=== PATIENT | female | born 2005 | race Two or more races ===

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

== ENCOUNTER 2024-04-03 20:51 | Emergency (ER) | payer MEDICAID | END 2024-04-03 22:15 | disposition left against medical advice (07) | LOC: ER 20:51 | DX: R10.2 Pelvic and perineal pain (principal); Z53.21 Procedure and treatment not carried out due to patient leaving prior to being seen by health care provider ==

== ENCOUNTER 2024-04-04 11:16 | Emergency (ER) | payer MEDICAID ==
[~2024-04-04] VITALS: Ht 149.9 cm; Wt 45.8 kg
[2024-04-04 11:45] LABS: Urine Bacteria None Seen /hpf (None Seen)
[2024-04-04 11:59] LABS: Urine Blood Negative /uL (Negative); Urine Clarity Clear (Clear); Urine Color Light-Yellow (Yellow); Urine Protein, UAD Negative (Negative); Urine Specific Gravity 1.016 (1.001-1.035); Urine Urobilinogen Normal (Negative); Urine WBC 1 /hpf (0 - 5); Urine pH 5.5 (5.0-9.0)
[2024-04-04 12:23] LABS: Basophils # (auto) 0 10 ^3/uL (0-0.2); Basophils % (auto) 0.2 % (0.0-2.0); Eosinophils # (auto) 0.1 10 ^3/uL (0-0.8); Eosinophils % (auto) 0.7 % (0.0-7.0); Hematocrit 41.8 % (36.0-46.0); Lymphocytes # (auto) 1.8 10 ^3/uL (0.4-5.4); Lymphocytes % (auto) 21.2 % (10.0-50.0); Mean Corpuscular Hemoglobin 28.2 pg (28.0-32.0); Mean Corpuscular Hgb Conc. 33.4 g/dL (32.0-36.0); Mean Corpuscular Volume 84.3 fL (80.0-100.0); Monocytes # (auto) 0.6 10 ^3/uL (0-1.3); Neutrophils # (auto) 6.1 10 ^3/uL (1.6-8.6); Neutrophils % (auto) 70.9 % (37.0-80.0); Nucleated Red Blood Cells % 0.1 %; Red Blood Cells 4.96 10^6/uL (4.0-5.20); White Blood Cell 8.5 10^3/uL (4.4-10.8)
[2024-04-04] MEDS: ACETAMINOPHEN 325 MG TAB PO ONE (12:30)
[2024-04-04 12:41] LABS: Alanine Aminotransferase 18 U/L (7-40); Albumin 4.3 g/dL (3.2-4.8); Alkaline Phosphatase 130 U/L (46-116); Anion Gap 5 (5-15); Aspartate Aminotransferase < 8 U/L (13-40); Bilirubin, Total 0.4 mg/dL (0.2-1.0); Blood Urea Nitrogen 10 mg/dL (9-23); Calcium 9.5 mg/dL (8.7-10.4); Carbon Dioxide 26 mmol/L (20-30); Chloride 108 mmol/L (98-107); Glucose 81 mg/dL (74-106); Potassium 3.8 mmol/L (3.5-5.1); Sodium 139 mmol/L (136-145); Total Protein 6.9 g/dL (5.7-8.2)
[2024-04-04 15:10] VITALS: BP 115/83; PULSE 92; RESP 18; TEMP 98.3; O2SAT 100
== END 2024-04-04 15:13 | disposition home or self-care (01) ==
LOC: ER 11:16
DX: O46.91 Antepartum hemorrhage, unspecified, first trimester (principal); R10.2 Pelvic and perineal pain; R10.84 Generalized abdominal pain; E86.0 Dehydration; Z3A.01 Less than 8 weeks gestation of pregnancy
CPT/HCPCS: 36415; 76801; 76817; 80053; 81001; 84702; 85025; 86900; 86901

== ENCOUNTER 2024-04-06 15:35 | Emergency (ER) | payer MEDICAID ==
[~2024-04-06] VITALS: Ht 149.9 cm; Wt 45.2 kg
[2024-04-06 16:02] VITALS: BP 117/78; PULSE 112; RESP 16; O2SAT 100
== END 2024-04-06 17:37 | disposition home or self-care (01) ==
LOC: ER 15:35
DX: O26.891 Other specified pregnancy related conditions, first trimester (principal); R10.2 Pelvic and perineal pain; R10.9 Unspecified abdominal pain; Z3A.01 Less than 8 weeks gestation of pregnancy
CPT/HCPCS: 36415; 84702

== ENCOUNTER 2024-08-26 09:07 | Emergency (ER) | payer MEDICAID ==
[~2024-08-26] VITALS: Ht 149.9 cm; Wt 50.5 kg
--- NOTE | 2024-08-26 09:51 | ED.PDOC ---
HPI (NEURO) HPI Comments 19 Y F, presents top the ED with CC of dizziness. Patient states that she has been experiencing dizziness with intermittent palpations, hot flashes, and nausea since this morning. Patient relays that she has experienced episodes like this in the past since the start of her which have since intensified. Patient states that she just returned from [place], and was supposed to address her symptoms there however, she was unable to hear back from her DR due to her returning [place] to the [place] Patient denies any vomiting, diarrhea, chills, cough, nasal congestion, or headache. Chief Complaint: Dizziness Time Seen by MD: 09:20 Primary Care Provider: NATALY Reviewed Notes: Nurses Notes, Medications, Allergies Information Source: Patient Mode of Arrival: Ambulatory Severity: Mild Headache Severity: None Timing: Hours Duration: Since onset Symptoms: None History of: None Modifying factors: Nothing Associated Signs and Symptoms: None Past Medical History PAST MEDICAL HISTORY: Denies Surgical History: Denies all surgeries FOREST PATHOLOGY PROFESSOR History: No Pertinent FOREST PATHOLOGY PROFESSOR History Family History Family History: Unknown Family History (Other): Sickle cell trait Social History Smoker: Non-Smoker Alcohol: Denies ETOH Use Drugs: Denies Drug Use Lives In: Home Constitutional: denies: chills, diaphoresis, fatigue, fever, malaise, sweats, weakness, others EENTM: denies: blurred vision, double vision, ear bleeding, ear discharge, ear drainage, ear pain, ear ringing, eye pain, eye redness, hearing loss, mouth pain, mouth swelling, nasal discharge, nose bleeding, nose congestion, nose pain, photophobia, tearing, throat pain, throat swelling, voice changes, others Respiratory: denies: cough, hemoptysis, orthopnea, SOB at rest, shortness of breath, SOB with excertion, stridor, wheezing, others Cardiovascular: reports: irregular heart beat, palpitations; denies: chest pain, dizzy spells, diaphoresis, Dyspnea on exertion, edema, left arm pain, lightheadedness, PND, syncope, others Gastrointestinal: reports: nausea; denies: abdomen distended, abdominal pain, blood streaked bowels, constipated, diarrhea, dysphagia, difficulty swallowing, hematemesis, melena, poor appetite, poor fluid intake, rectal bleeding, rectal pain, vomiting, others Genitourinary: denies: abnormal vagina bleeding, burning, dyspareunia, dysuria, flank pain, frequency, hematuria, incontinence, pain, , vagina discharge, urgency, others Neurological: denies: dizziness, fainting, headache, left sided numbness, left sided weakness, numbness, paresthesia, pre-existing deficit, right sided numbness, right sided weakness, seizure, speech problems, tingling, tremors, weakness, others Musculoskeletal: denies: back pain, gout, joint pain, joint swelling, muscle pain, muscle stiffness, neck pain, others Integumetry: denies: bruises, change in color, change in hair/nails, dryness, laceration, lesions, lumps, rash, wounds, others Allergic/Immunocompromised: denies: Difficulty Healing, Frequent Infections, Hives, Itching, others Hematologic/Lymphatic: denies: anemia, blood clots, easy bleeding, easy bruising, swollen glands, others All Other Systems: Reviewed and Negative Physical Exam General Appearance: No Apparent Distress, Normal HEENT: Normal ENT Inspection, Pharynx Normal, TMs Normal Neck: Full Range of Motion, Non-Tender, Normal, Normal Inspection Respiratory: Chest Non-Tender, Lungs Clear, No Accessory Muscle Use, No Respiratory Distress, Normal Breath Sounds Cardiovascular: No Edema, No JVD, No Murmur, No Gallop, Normal Peripheral Pulses, Regular Rate/Rhythm Breast Exam: Deferred Gastrointestinal: No Organomegaly, Non Tender, No Pulsatile Mass, Normal Bowel Sounds, Soft Genitalia: Deferred Pelvic: Deferred Rectal: Deferred Extremities: No calf tenderness, Normal capillary refill, Normal inspection, Normal range of motion, Non-tender, No pedal edema Musculoskeletal : Apperance: Normal Neurologic: Alert, hand profiler II-XII nml as Tested, No Motor Deficits, Normal Affect, Normal Mood, No Sensory Deficits Cerebellar Function: Normal Reflexes: Normal Skin: Dry, Normal Color, Warm Lymphatic: No Adenopathy Was a procedure done? Was a procedure done?: No Differential Diagnosis (SZ) General Weakness: Dehydration, Dysrhythmia Headache: Cluster, Migraine X-Ray, Labs, Meds, VS Vital Signs Date Time Temp Pulse Resp B/P (MAP) Pulse Ox O2 Delivery O2 Flow Rate FiO2 08/26/24 11:00 98.1 101 18 105/67 (80) 100 98.1 08/26/24 09:22 114 08/26/24 09:07 98.6 116 18 126/79 (95) 98 Lab Test 08/26/24 11:20 08/26/24 10:28 08/26/24 09:38 Range/Units Urine Color Light-yellow Yellow Urine Clarity Clear Clear Urine pH 5.5 5.0-9.0 Urine Specific [place] 1.010 1.001-1.035 Urine Protein Negative Negative Urine Ketones Negative Negative Urine Blood Negative Negative /uL Urine Nitrite Negative Negative Urine Bilirubin Negative Negative Urine Urobilinogen Normal Negative mg/dL Urine Leukocyte Esterase Negative Negative /uL Urine RBC 1 0 - 4 /hpf Urine WBC 3 0 - 5 /hpf Urine Squamous Epithelial Cells Few <5 /hpf Urine Bacteria Few H None Seen /hpf Urine Mucus Few None Seen Urine Glucose Normal Normal mg/dL Troponin I High Sensitivity < 3 L < 3 L </=34 ng/L White Blood Count 5.3 4.4-10.8 10^3/uL Red Blood Count 4.59 4.0-5.20 10^6/uL Hemoglobin 13.2 12.2-16.2 g/dL Hematocrit 38.8 36.0-46.0 % Mean Corpuscular Volume 84.5 80.0-100.0 fL Mean Corpuscular Hemoglobin 28.9 28.0-32.0 pg Mean Corpuscular Hemoglobin Concent 34.2 32.0-36.0 g/dL Red Cell Distribution Width 13.6 11.8-14.3 % Platelet Count 135 L 140-450 10^3/uL Mean Platelet Volume 9.3 6.9-10.8 fL Neutrophils (%) (Auto) 59.1 37.0-80.0 % Lymphocytes (%) (Auto) 32.0 10.0-50.0 % Monocytes (%) (Auto) 7.4 0.0-12.0 % Eosinophils (%) (Auto) 1.1 0.0-7.0 % Basophils (%) (Auto) 0.4 0.0-2.0 % Neutrophils # (Auto) 3.1 1.6-8.6 10 ^3/uL Lymphocytes # (Auto) 1.7 0.4-5.4 10 ^3/uL Monocytes # (Auto) 0.4 0-1.3 10 ^3/uL Eosinophils # (Auto) 0.1 0-0.8 10 ^3/uL Basophils # (Auto) 0 0-0.2 10 ^3/uL Nucleated Red Blood Cells 0.0 % Sodium Level 139 136-145 mmol/L Potassium Level 3.5 3.5-5.1 mmol/L Chloride Level 106 98-107 mmol/L Carbon Dioxide Level 24 20-31 mmol/L Anion Gap 9 5-15 Blood Urea Nitrogen 6 L 9-23 mg/dL Creatinine 0.54 L 0.550-1.02 mg/dL Glomerular Filtration Rate Calc 135 >90 mL/min BUN/Creatinine Ratio 11.1 10.0-20.0 Serum Glucose 76 74-106 mg/dL Calcium Level 9.4 8.7-10.4 mg/dL Current Medications Medications (Trade) Dose Ordered Sig/David Route Start Time Stop Time Status Last Admin Sodium Chloride 1,000 ml @ 1,000 mls/hr Q1H ONCE IV 08/26/24 09:30 08/26/24 10:29 DC 08/26/24 10:20 Ondansetron HCl (Zofran) 4 mg ONCE ONCE IV 08/26/24 09:30 08/26/24 09:31 DC 08/26/24 10:23 Time of 1ST Reevaluation: 09:50 Reevaluation 1ST: Unchanged Patient Education/Counseling: Diagnosis, Treatment Family Education/Counseling: No Family Present Departure 1 Departure Time of Disposition: 14:34 (Patient's workup is benign. She is feeling significantly better after receiving fluids. Discharge patient home with outpatient follow up) Impression: Primary Impression: Palpitations Additional Impressions: Dizziness Qualified Codes: Z34.90 - Encounter for supervision of normal , unspecified, unspecified trimester Disposition: 01 HOME / SELF CARE / HOMELESS Condition: Stable Referrals: NIMISHA INGRAM DO Additional Instructions: Your workup today was benign. You can take Tylenol as needed for pain. You should follow up with your regular doctor within 1 week. You should stay well rested and well hydrated. If your symptoms worsen or you have any other concerns please return to the emergency room. Discharged With: Self Critical Care Note Critical Care Time?: No Stability Stability form required: No Heart Score Heart Score: Heart Score Response (Comments) Value History N/A 0 EKG N/A 0 Age N/A 0 Risk Factors N/A 0 Troponin N/A 0 Total 0 I personally scribed for DONNA SOLIS MD ([email or web address]) on 08/26/24 at 09:51. Electronically submitted by Elise Mayen ([email or web address]). I personally scribed for DONNA SOLIS MD ([email or web address]) on 08/26/24 at 09:58. Electronically submitted by Elise Mayen ([email or web address]). DONNA SOLIS MD Aug 26, 2024 09:51
[2024-08-26 10:02] LABS: Basophils # (auto) 0 10 ^3/uL (0-0.2); Basophils % (auto) 0.4 % (0.0-2.0); Eosinophils # (auto) 0.1 10 ^3/uL (0-0.8); Eosinophils % (auto) 1.1 % (0.0-7.0); Hematocrit 38.8 % (36.0-46.0); Hemoglobin 13.2 g/dL (12.2-16.2); Lymphocytes # (auto) 1.7 10 ^3/uL (0.4-5.4); Mean Corpuscular Hemoglobin 28.9 pg (28.0-32.0); Mean Corpuscular Hgb Conc. 34.2 g/dL (32.0-36.0); Mean Corpuscular Volume 84.5 fL (80.0-100.0); Monocytes # (auto) 0.4 10 ^3/uL (0-1.3); Monocytes % (auto) 7.4 % (0.0-12.0); Neutrophils # (auto) 3.1 10 ^3/uL (1.6-8.6); Neutrophils % (auto) 59.1 % (37.0-80.0); Platelet Count (auto) 135 10^3/uL (140-450); Red Blood Cells 4.59 10^6/uL (4.0-5.20); Red Cell Distribution Width 13.6 % (11.8-14.3); White Blood Cell 5.3 10^3/uL (4.4-10.8)
[2024-08-26 10:14] LABS: Chloride 106 mmol/L (98-107); Potassium 3.5 mmol/L (3.5-5.1)
[2024-08-26 10:15] LABS: Anion Gap 9 (5-15); Carbon Dioxide 24 mmol/L (20-31); Sodium 139 mmol/L (136-145)
[2024-08-26 10:16] LABS: Calcium 9.4 mg/dL (8.7-10.4)
[2024-08-26] MEDS: SODIUM CHLORIDE 0.9% 1,000 ML IV ONE (10:20)
[2024-08-26 10:21] LABS: BUN/Creatinine Ratio 11.1 (10.0-20.0); Glucose 76 mg/dL (74-106)
[2024-08-26 10:22] LABS: Blood Urea Nitrogen 6 mg/dL (9-23)
[2024-08-26] MEDS: ONDANSETRON HCL 4 MG/2 ML VIAL IV ONE (10:23)
[2024-08-26 11:58] LABS: Urine Bacteria FEW /hpf (None Seen); Urine Blood Negative /uL (Negative); Urine Clarity Clear (Clear); Urine Color Light-Yellow (Yellow); Urine Mucus FEW (None Seen); Urine Protein, UAD Negative (Negative); Urine Urobilinogen Normal (Negative); Urine WBC 3 /hpf (0 - 5); Urine pH 5.5 (5.0-9.0)
[2024-08-26 15:17] VITALS: BP 109/69; PULSE 96; RESP 18; TEMP 98; O2SAT 99
--- NOTE | 2024-08-27 10:20 | ECG ---
[facility] Test Date: 2024-08-26 Test Time: 09:22:31 Pat Name: KERRY HEATH Department: ER Room: Gender: F Environmental Lawyer: LUIS : 2005 Requested By: DONNA SOLIS Order Number: [id number] Reading MD: Measurements Intervals [place] Rate: 114 P: 35 MN: 142 QRS: 93 QRSD: 87 T: 42 QT: 312 QTc: 430 Interpretive Statements Sinus tachycardia Borderline right axis deviation Borderline T wave abnormalities Please click the below link to view image of tracing.
== END 2024-08-26 15:19 | disposition home or self-care (01) ==
LOC: ER 09:07
DX: O26.892 Other specified pregnancy related conditions, second trimester (principal); R00.2 Palpitations; R00.0 Tachycardia, unspecified; R42 Dizziness and giddiness; Z36.9 Encounter for antenatal screening, unspecified; Z3A.24 24 weeks gestation of pregnancy
CPT/HCPCS: 36415; 80048; 81001; 84484; 85025; 93005; 96361; 96374; 99284; J2405; J7030

== ENCOUNTER 2024-08-29 14:05 | Inpatient (IN) | payer MEDICAID ==
[~2024-08-29] VITALS: Ht 149.9 cm; Wt 57.0 kg
--- NOTE | 2024-08-29 14:35 | ED.PDOC ---
History of Present Illness HPI Comments HPI: Poor Historian. 19-year-old female presents to emergency department for evaluation of nausea and vomiting nonbilious nonbloody that started today. Patient has checked her pulse and was in the 130s and decided to come here for evaluation. She says she feels sometimes episodes of dizziness today. Patient is 25 weeks gestation. Denies any abdominal pain or abdominal cramps or urinary symptoms. VITALS: Temp: 98.0 F RR: 17 02 sat : 99 % on room air HR: 132 BP: 113/65 PMH: denies PSH: denies Social history: denies tobacco use, denies ETOH use, denies drug use Medications: pre-anamika vitamins Allergies: denies REVIEW OF SYSTEMS: CONSTITUTIONAL: Denies acute: fever, diaphoresis, chills, generalized weakness. HEAD: Denies acute: headache, photophobia Eyes: Denies acute: Double vision, vision loss, eye pain, eye discharge. EARS: Denies acute: tinnitus, hearing loss, ear discharge, ear pain, THROAT: Denies acute: sore throat, swelling, difficulty swallowing , pain with swallowing, change in voice. NECK: Denies acute: neck pain, neck swelling, stiff neck. HEART: Denies acute : chest pain, palpitations, LUNGS: Denies acute: SOB, wheezing, cough, hemoptysis ABDOMEN: Denies acute: abdominal pain, diarrhea, melena , hematemesis, hematochezia SKIN: Denies acute: rash, redness, lesions, itchiness. EXTREMITIES: Denies acute: calf pain, numbness, tingling, weakness, denies pain in extremity. Denies acute: Low back pain. Neuro: Denies acute: focal neurological deficit, motor or sensory focal neurological deficit, tremors, seizure like activity, confusion, dizziness, change in mental status, loss of bowel or bladder function, cauda equina like symptoms. : Denies acute: dysuria, hematuria, flank pain, increase in urinary frequency. PSYCH: Denies acute: hallucination, suicidal ideation, homicidal ideation. FEMALE: Denies acute: abnormal vaginal bleeding, foul odor, unusual discharge. PHYSICAL EXAM: General: no acute distress, awake and alert. Head: normocephalic, atraumatic. Neck: supple, trachea is midline, no swelling. Throat: Normal phonation. No exudates, no swelling, no obstruction, no erythema, no deviation, no drooling Eyes:, no erythema, no purulent discharge, no proptosis, no icterus. Heart: regular tachycardia, no significant murmur appreciated. Lungs: no apparent respiratory distress, Able to speak in full sentences. No wheezing, no rhonchi, no crackles. No stridors Clear to auscultation bilaterally. Abdomen: non tender to palpation, non distended, soft, no guarding, no rebound, + bowel sounds. Gravid abdomen Neuro: Awake, Alert, oriented to name, self, situation, follows commands GCS=15. Speech is normal. Skin: no petechia, no purpura, no cyanosis, non-pale, not jaundice. Lower extremities: --no - Pitting edema no deformity, no focal swelling, no calf TTP. Makes eye contact. moves all four extremities. Face: no apparent facial droop. Ambulating in the ED independently. No nuchal rigidity, Kernig's sign, Brudzinski's sign, no meningeal signs. Chief Complaint: Nausea/Vomiting Time Seen by MD: 14:27 Primary Care Provider: NATALY Reviewed Notes: Nurses Notes, Medications, Allergies Allergies: Coded Allergies: NO KNOWN ALLERGIES (Unverified , 06/23/23) Information Source: Patient Past Medical History PAST MEDICAL HISTORY: Denies Surgical History: Denies all surgeries INFORMATION SECURITY OFFICER History: No Pertinent INFORMATION SECURITY OFFICER History Family History Family History: Unknown Family History (Other): Sickle cell trait Social History Smoker: Non-Smoker Alcohol: Denies ETOH Use Drugs: Denies Drug Use Lives In: Home Was a procedure done? Was a procedure done?: No X-Ray, Labs, Meds, VS Vital Signs Date Time Temp Pulse Resp B/P (MAP) Pulse Ox O2 Delivery O2 Flow Rate FiO2 08/29/24 20:31 98.6 119 98.6 08/29/24 19:45 98.6 127 16 112/71 (85) 99 98.6 08/29/24 19:45 127 16 99 Room Air* 0 21 08/29/24 14:28 98.0 132 17 113/65 (81) 99 08/29/24 14:12 130 Lab Test 08/29/24 17:27 08/29/24 15:00 08/29/24 14:36 Range/Units Troponin I High Sensitivity < 3 L < 3 L </=34 ng/L White Blood Count 5.9 4.4-10.8 10^3/uL Red Blood Count 4.50 4.0-5.20 10^6/uL Hemoglobin 12.8 12.2-16.2 g/dL Hematocrit 38.0 36.0-46.0 % Mean Corpuscular Volume 84.4 80.0-100.0 fL Mean Corpuscular Hemoglobin 28.4 28.0-32.0 pg Mean Corpuscular Hemoglobin Concent 33.7 32.0-36.0 g/dL Red Cell Distribution Width 13.6 11.8-14.3 % Platelet Count 148 140-450 10^3/uL Mean Platelet Volume 9.3 6.9-10.8 fL Neutrophils (%) (Auto) 59.2 37.0-80.0 % Lymphocytes (%) (Auto) 31.9 10.0-50.0 % Monocytes (%) (Auto) 8.4 0.0-12.0 % Eosinophils (%) (Auto) 0.3 0.0-7.0 % Basophils (%) (Auto) 0.2 0.0-2.0 % Neutrophils # (Auto) 3.5 1.6-8.6 10 ^3/uL Lymphocytes # (Auto) 1.9 0.4-5.4 10 ^3/uL Monocytes # (Auto) 0.5 0-1.3 10 ^3/uL Eosinophils # (Auto) 0 0-0.8 10 ^3/uL Basophils # (Auto) 0 0-0.2 10 ^3/uL Nucleated Red Blood Cells 0.1 % Sodium Level 139 136-145 mmol/L Potassium Level 3.8 3.5-5.1 mmol/L Chloride Level 105 98-107 mmol/L Carbon Dioxide Level 25 20-31 mmol/L Anion Gap 9 5-15 Blood Urea Nitrogen 6 L 9-23 mg/dL Creatinine 0.50 L 0.550-1.02 mg/dL Glomerular Filtration Rate Calc 138 >90 mL/min BUN/Creatinine Ratio 12.0 10.0-20.0 Serum Glucose 88 74-106 mg/dL Lactic Acid Level 1.0 0.4-2.0 mmol/L Calcium Level 9.0 8.7-10.4 mg/dL Magnesium Level 1.9 1.6-2.6 mg/dL Total Bilirubin 0.4 0.2-1.0 mg/dL Aspartate Amino Transferase (AST) 53 H 13-40 U/L Alanine Aminotransferase (ALT) 75 H 7-40 U/L Alkaline Phosphatase 112 46-116 U/L Total Protein 6.2 5.7-8.2 g/dL Albumin 3.9 3.2-4.8 g/dL Lipase 31 12-53 U/L Thyroid Stimulating Hormone (TSH) 2.31 0.55-4.78 uIU/mL Urine Color Light-yellow Yellow Urine Clarity Clear Clear Urine pH 6.0 5.0-9.0 Urine Specific [place] 1.014 1.001-1.035 Urine Protein Negative Negative Urine Ketones Negative Negative Urine Blood Negative Negative /uL Urine Nitrite Negative Negative Urine Bilirubin Negative Negative Urine Urobilinogen Normal Negative mg/dL Urine Leukocyte Esterase 1+ Negative /uL Urine RBC 1 0 - 4 /hpf Urine WBC 1 0 - 5 /hpf Urine Squamous Epithelial Cells Few <5 /hpf Urine Bacteria Few H None Seen /hpf Urine Glucose Normal Normal mg/dL Urine Opiates Screen Neg NEGATIVE Urine Fentanyl Screen Neg NEGATIVE Urine Barbiturates Screen Neg NEGATIVE Urine Phencyclidine Screen Neg NEGATIVE Urine Amphetamines Screen Neg NEGATIVE Urine Benzodiazepines Screen Neg NEGATIVE Urine Cocaine Screen Neg NEGATIVE Urine Cannabinoids Screen Neg NEGATIVE Influenza Type A Antigen Negative Negative Influenza Type B Antigen Negative Negative SARS-CoV-2 Antigen (Rapid) Negative NEGATIVE Group A Streptococcus Rapid Negative Current Medications Medications (Trade) Dose Ordered Sig/David Route Start Time Stop Time Status Last Admin Sodium Chloride 500 ml @ 500 mls/hr Q1H ONCE IV 08/29/24 18:15 08/29/24 19:14 DC 08/29/24 19:54 Ondansetron HCl (Zofran) 8 mg ONCE ONCE IV 08/29/24 20:30 08/29/24 20:31 DC 08/29/24 20:53 Ceftriaxone Sodium 50 ml @ 100 mls/hr ONCE ONCE IV 08/29/24 20:30 08/29/24 20:59 DC 08/29/24 20:53 Sodium Chloride 500 ml @ 500 mls/hr Q1H ONCE IV 08/29/24 21:00 08/29/24 21:59 DC 08/29/24 21:07 Time of 1ST Reevaluation: 20:51 (The case was discussed with the [facility] team (HPI, physical exam, labs and diagnostic tests that were available at the time of disposition, ED course, treatment plan) on the phone. They recommend labetalol IV for heart rate control. They agree with fluid and Zofran. Dr. Dixon. Later I spoke with Dr. Alaniz who also agrees with labetalol.) Reevaluation 1ST: Improved Patient Education/Counseling: Diagnosis, Treatment Family Education/Counseling: No Family Present Comments MDM: Patient presented with the above HPI.----- nausea and vomiting----- workup was initiated. patient was found with the above mentioned diagnosis. the following medications were ordered: labetalol, Rocephin, IV fluids, Zofran the following tests were ordered: troponin x3, TSH, UA, rapid strep, Influenza A and B, COVID test, lipase, Magnesium, lactic acid, drug screen, CBC, CMP, EKG x 1 Patient ED course and VS have been stabilized. Patient has been reassessed in the ED and remained in a stable condition. Patient has been observed in the ED adequate length of time to insure improvement/stability. Escalation of care considered: Consideration of escalation to observation or admission. patient was ADMITTED to the medicine team for further evaluation and treatment of their presentation. All the reports of any imaging studies that were ordered by myself were reviewed by myself. Departure 1 Departure Time of Disposition: 20:29 Impression: Primary Impression: Sinus tachycardia Disposition: ADMITTED INPATIENT Admit to: [facility] Condition: Guarded Discharged With: Self Critical Care Note Critical Care Time?: No Heart Score Heart Score: Heart Score Response (Comments) Value History Slightly Suspicious 0 Age <45 0 Risk Factors No known risk factors 0 Troponin Normal limit 0 Total 0 I personally scribed for DARLENE JOYNER DO ([email or web address]) on 08/29/24 at 17:15. Electronically submitted by Ministerio Graf ([email or web address]). I personally scribed for DARLENE JOYNER DO ([email or web address]) on 08/29/24 at 21:14. Electronically submitted by Ministerio Graf ([email or web address]). DARLENE JOYNER DO Aug 29, 2024 14:35
[2024-08-29 15:35] LABS: Basophils # (auto) 0 10 ^3/uL (0-0.2); Basophils % (auto) 0.2 % (0.0-2.0); Eosinophils # (auto) 0 10 ^3/uL (0-0.8); Eosinophils % (auto) 0.3 % (0.0-7.0); Hemoglobin 12.8 g/dL (12.2-16.2); Lymphocytes # (auto) 1.9 10 ^3/uL (0.4-5.4); Lymphocytes % (auto) 31.9 % (10.0-50.0); Mean Corpuscular Hemoglobin 28.4 pg (28.0-32.0); Mean Corpuscular Hgb Conc. 33.7 g/dL (32.0-36.0); Mean Corpuscular Volume 84.4 fL (80.0-100.0); Monocytes # (auto) 0.5 10 ^3/uL (0-1.3); Monocytes % (auto) 8.4 % (0.0-12.0); Neutrophils # (auto) 3.5 10 ^3/uL (1.6-8.6); Neutrophils % (auto) 59.2 % (37.0-80.0); Nucleated Red Blood Cells % 0.1 %; Platelet Count (auto) 148 10^3/uL (140-450); Red Cell Distribution Width 13.6 % (11.8-14.3); White Blood Cell 5.9 10^3/uL (4.4-10.8)
[2024-08-29 15:48] LABS: Urine Bacteria FEW /hpf (None Seen); Urine Blood Negative /uL (Negative); Urine Clarity Clear (Clear); Urine Color Light-Yellow (Yellow); Urine Protein, UAD Negative (Negative); Urine Specific Gravity 1.014 (1.001-1.035); Urine Urobilinogen Normal (Negative); Urine WBC 1 /hpf (0 - 5)
[2024-08-29 15:56] LABS: Albumin 3.9 g/dL (3.2-4.8); Alkaline Phosphatase 112 U/L (46-116); Anion Gap 9 (5-15); Bilirubin, Total 0.4 mg/dL (0.2-1.0); Carbon Dioxide 25 mmol/L (20-31); Chloride 105 mmol/L (98-107); Glucose 88 mg/dL (74-106); Lipase 31 U/L (12-53); Magnesium 1.9 mg/dL (1.6-2.6); Potassium 3.8 mmol/L (3.5-5.1); Sodium 139 mmol/L (136-145); Total Protein 6.2 g/dL (5.7-8.2)
[2024-08-29 15:57] LABS: Amphetamine Screen, Urine Neg (NEGATIVE); Barbiturate Scree,Urine Neg (NEGATIVE); Benzodiazephine Screen, Urine Neg (NEGATIVE); Cannabinoid Screen, Urine Neg (NEGATIVE); Cocaine Screen, Urine Neg (NEGATIVE); Opiate Scree,Urine Neg (NEGATIVE); Phencyclidine Screen, Urine Neg (NEGATIVE)
[2024-08-29 16:08] LABS: Alanine Aminotransferase 75 U/L (7-40); Aspartate Aminotransferase 53 U/L (13-40); Blood Urea Nitrogen 6 mg/dL (9-23)
[2024-08-29 16:26] LABS: COVID19 ANTIGEN SOFIA FIA NEGATIVE (NEGATIVE); Rapid Influenza A Negative (Negative); Rapid Influenza B Negative (Negative); Rapid Strep A Screen-Throat Negative
[2024-08-29 19:45] VITALS: PULSE 127; RESP 16; O2SAT 99
[2024-08-29] MEDS: SODIUM CHLORIDE 0.9% 500 ML IV ONE ×2 (19:54→21:07)
[2024-08-29] MEDS: cefTRIAXone 1GM/50ML D5W 50 ML IV ONE (20:53)
[2024-08-29] MEDS: ONDANSETRON HCL 4 MG/2 ML VIAL IV ONE (20:53)
[2024-08-29] MEDS: LABETALOL HCL 20 MG/4 ML VL IV ONE (21:08)
[2024-08-29] MEDS ORDERED: MORPHINE SULFATE INJ 2 MG/ml SYRG IV PRN (23:00)
[2024-08-29] MEDS ORDERED: ONDANSETRON HCL 4 MG/2 ML VIAL IV PRN (23:00)
[2024-08-29] MEDS ORDERED: NITROGLYCERIN 0.4 MG SL TAB SL PRN (23:00)
--- NOTE | 2024-08-29 23:04 | DVHHPRES ---
History of Present Illness Resident Creating Document: KARYN HUTCHINSON RESIDENT History of Present Illness This is a 19-year-old and to at 24 year week of presented to the ED with a chief complaint of intractable nausea and vomiting since morning prior to this admission. The patient states that she has few episodes of vomiting since morning and also complaining of headache and palpitation for the same duration. The patient denies any history of preeclampsia/eclampsia during previous or any elevated blood pressure on this . 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 The patient denies abdominal pain, any vaginal discharge, decreased heart sounds, chest pain, dizziness, diaphoresis, dysuria, change in bowel and bladder habit, sick contact, fever, chills or any recent traveling. Past Medical History None Past Surgical History None Family History Sickle cell trait runs in the family Past Social History Lives with family Nonsmoker, nonalcoholic and never tried any drugs Review of Systems Constitutional: No: Fever, Chills, Sweats, Weakness, Malaise, Other Eyes: No: Pain, Vision change, Conjunctivae inflammation, Eyelid inflammation, Other, Redness ENT: No: Ear pain, Ear discharge, Nose pain, Nose discharge, Nose congestion, Mouth pain, Mouth swelling, Throat pain, Throat swelling, Other Respiratory: No: Cough, Dry, Shortness of breath, SOB with excertion, Wheezing, Hemoptysis, Pleuritic Pain, Sputum, Wheezing, Other Cardiovascular: Palpitations Gastrointestinal: Nausea, Vomiting Genitourinary: No Dysuria, No Frequency, No Incontinence, No Hematuria, No Retention, No Other Musculoskeletal: No: other, neck pain, shoulder pain, arm pain, back pain, hand pain, leg pain, foot pain Skin: No: Rash, Lesions, Jaundice, Bruising, Other Neurological: No: Weakness, Numbness, Incoordination, Change in speech, Confusion, Seizures, Other Allergies: Coded Allergies: NO KNOWN ALLERGIES (Unverified , 06/23/23) Medications Current Medications Medications Dose Ordered Sig/David Route Start Time Stop Time Status Last Admin Dose Admin Sodium Chloride 10 ml Q8HR IV 08/30/24 06:00 UNV Sodium Chloride 1,000 ml @ 100 mls/hr Q10H IV 08/29/24 23:00 UNV Ondansetron HCl 4 mg Q4HP PRN IV 08/29/24 23:00 UNV Acetaminophen 650 mg Q6HP PRN PO 08/29/24 23:00 UNV Nitroglycerin 0.4 mg Q5MINP PRN SL 08/29/24 23:00 UNV Morphine Sulfate 2 mg Q30M PRN IV 08/29/24 23:00 UNV Exam Vital Signs Vital Signs Date Time Temp Pulse Resp B/P (MAP) Pulse Ox O2 Delivery O2 Flow Rate FiO2 08/29/24 20:31 98.6 119 98.6 08/29/24 19:45 16 112/71 (85) 99 08/29/24 19:45 Room Air* 0 21 Exam Physical examination: General Appearance: Alert, Oriented X3, Cooperative, No acute distress HEENT: Atraumatic, PERRLA, EOMI, Mucous membrane moist/pink Respiratory: Clear to auscultation, Normal air movement Cardiovascular: Regular rate, Normal S1, Normal S2, No murmurs, no chest wall tenderness Abdominal: 25th week distended abdomen, Normal bowel sounds, Soft, No tenderness, No hepatospenomegaly, No masses Extremities: No clubbing, No cyanosis, No edema, Normal pulses, No tenderness/swelling Skin: No rashes, No breakdown, No significant lesion Neuro: Normal gait, Normal speech, Strength at 5/5 X4 ext, Normal tone, Sensation intact, Cranial nerves 3-12 NL, Reflexes 2+ Psych/Mental Status: Mental status NL, Mood NL Labs/Xrays Labs Test 08/29/24 17:27 08/29/24 15:00 08/29/24 14:36 Range/Units Troponin I High Sensitivity < 3 L </=34 ng/L White Blood Count 5.9 4.4-10.8 10^3/uL Red Blood Count 4.50 4.0-5.20 10^6/uL Hemoglobin 12.8 12.2-16.2 g/dL Hematocrit 38.0 36.0-46.0 % Mean Corpuscular Volume 84.4 80.0-100.0 fL Mean Corpuscular Hemoglobin 28.4 28.0-32.0 pg Mean Corpuscular Hemoglobin Concent 33.7 32.0-36.0 g/dL Red Cell Distribution Width 13.6 11.8-14.3 % Platelet Count 148 140-450 10^3/uL Mean Platelet Volume 9.3 6.9-10.8 fL Neutrophils (%) (Auto) 59.2 37.0-80.0 % Lymphocytes (%) (Auto) 31.9 10.0-50.0 % Monocytes (%) (Auto) 8.4 0.0-12.0 % Eosinophils (%) (Auto) 0.3 0.0-7.0 % Basophils (%) (Auto) 0.2 0.0-2.0 % Neutrophils # (Auto) 3.5 1.6-8.6 10 ^3/uL Lymphocytes # (Auto) 1.9 0.4-5.4 10 ^3/uL Monocytes # (Auto) 0.5 0-1.3 10 ^3/uL Eosinophils # (Auto) 0 0-0.8 10 ^3/uL Basophils # (Auto) 0 0-0.2 10 ^3/uL Nucleated Red Blood Cells 0.1 % Sodium Level 139 136-145 mmol/L Potassium Level 3.8 3.5-5.1 mmol/L Chloride Level 105 98-107 mmol/L Carbon Dioxide Level 25 20-31 mmol/L Anion Gap 9 5-15 Blood Urea Nitrogen 6 L 9-23 mg/dL Creatinine 0.50 L 0.550-1.02 mg/dL Glomerular Filtration Rate Calc 138 >90 mL/min BUN/Creatinine Ratio 12.0 10.0-20.0 Serum Glucose 88 74-106 mg/dL Lactic Acid Level 1.0 0.4-2.0 mmol/L Calcium Level 9.0 8.7-10.4 mg/dL Magnesium Level 1.9 1.6-2.6 mg/dL Total Bilirubin 0.4 0.2-1.0 mg/dL Aspartate Amino Transferase (AST) 53 H 13-40 U/L Alanine Aminotransferase (ALT) 75 H 7-40 U/L Alkaline Phosphatase 112 46-116 U/L Total Protein 6.2 5.7-8.2 g/dL Albumin 3.9 3.2-4.8 g/dL Lipase 31 12-53 U/L Thyroid Stimulating Hormone (TSH) 2.31 0.55-4.78 uIU/mL Urine Color Light-yellow Yellow Urine Clarity Clear Clear Urine pH 6.0 5.0-9.0 Urine Specific [place] 1.014 1.001-1.035 Urine Protein Negative Negative Urine Ketones Negative Negative Urine Blood Negative Negative /uL Urine Nitrite Negative Negative Urine Bilirubin Negative Negative Urine Urobilinogen Normal Negative mg/dL Urine Leukocyte Esterase 1+ Negative /uL Urine RBC 1 0 - 4 /hpf Urine WBC 1 0 - 5 /hpf Urine Squamous Epithelial Cells Few <5 /hpf Urine Bacteria Few H None Seen /hpf Urine Glucose Normal Normal mg/dL Urine Opiates Screen Neg NEGATIVE Urine Fentanyl Screen Neg NEGATIVE Urine Barbiturates Screen Neg NEGATIVE Urine Phencyclidine Screen Neg NEGATIVE Urine Amphetamines Screen Neg NEGATIVE Urine Benzodiazepines Screen Neg NEGATIVE Urine Cocaine Screen Neg NEGATIVE Urine Cannabinoids Screen Neg NEGATIVE Influenza Type A Antigen Negative Negative Influenza Type B Antigen Negative Negative SARS-CoV-2 Antigen (Rapid) Negative NEGATIVE Group A Streptococcus Rapid Negative Assessment/Plan Assessment/Plan Assessment and plan: # Intractable nausea and vomiting in - IV normal saline at 100 mL/hour - IV ondansetron 4 mg q.4 p.r.n. - Consulted Obgyn # Sinus tachycardia likely due to dehydration - IV normal saline at 100 mL/hour # Asymptomatic bacteriuria in - U/A revealed 1+ leukocyte esterase and few bacteria - IV ceftriaxone 1 g daily # Transaminitis, rule out HELLP syndrome - Ordered urine protein - Monitor BP and CMP Goal of care discussed with the patient for more than 17 minutes full code Plan of treatment discussed with Dr. Jaramillo Plan discussed with: Patient, Other My Orders Orders - KARYN HUTCHINSON RESIDENT Procedure Category Date Status Time Admit ADMIT 08/29/24 Transmitted 22:55 Code Status CODE 08/29/24 Transmitted 22:55 Sodium Chloride Lock PHA 08/30/24 Logged (Saline Lock Ns) 06:00 Sodium Chloride 0.9% PHA 08/29/24 Logged 23:00 Ondansetron Hcl PHA 08/29/24 Logged (Zofran) 23:00 Complete Blood Count LAB 08/30/24 Verified 04:00 Comprehensive LAB 08/30/24 Verified Metabolic Panel 04:00 Acetaminophen Tablet PHA 08/29/24 Logged (Tylenol Tablet) 23:00 Clear Liq Diet DIET 08/30/24 Transmitted Breakfast Nitroglycerin PHA 08/29/24 Logged Sublingual (Ntrostat 23:00 Morphine Sulfate PHA 08/29/24 Logged Injection 23:00 Oxygen By Nasal RT 08/29/24 Transmitted Cannula 22:55 Stat Ekg For Chest MAURO 08/29/24 In Process Pain 22:55 Notify Of Changes MAURO 08/29/24 In Process From Base 22:55 Billing Administrator For MAURO 08/29/24 In Process 24 Hours 22:55 Emergency Dysrhythmia MAURO 08/29/24 In Process Protocol 22:55 Rhythm Strips Once MAURO 08/29/24 In Process Every Shift 22:55 Urine Protein LAB 08/29/24 Transmitted 23:01 Ceftriaxone Ivpb PHA 08/30/24 Transmitted Rocephin 10:00 * Client Server Programmer Consultation CONS 08/29/24 Transmitted 23:01 Date of Service: Aug 29, 2024 Billing Provider: KENYON JARAMILLO MD Common Visit Codes: [id number] INP/OBS CARE (HIGH) KARYN HUTCHINSON RESIDENT Aug 29, 2024 23:04 KENYON JARAMILLO MD Aug 30, 2024 10:47
[2024-08-30] VITALS (9 sets, daily range): BP systolic 100–111; BP diastolic 59–67; PULSE 99–134; RESP 16–20; TEMP 97.3–100.3; O2SAT 97–100
[2024-08-30] MEDS: ACETAMINOPHEN 325 MG TAB PO PRN (00:15)
[2024-08-30] MEDS: SODIUM CHLORIDE 0.9% 1,000 ML IV SCH (00:38)
[2024-08-30] MEDS: SODIUM CHLOR 0.9% PF (SALINE LOCK) 10ML VIAL/SYR IV SCH (05:38)
[2024-08-30 06:11] LABS: Hemoglobin 12.1 g/dL (12.2-16.2); Mean Corpuscular Hemoglobin 28.6 pg (28.0-32.0); Mean Corpuscular Hgb Conc. 33.6 g/dL (32.0-36.0); Platelet Count (auto) 123 10^3/uL (140-450); Red Blood Cells 4.24 10^6/uL (4.0-5.20); Red Cell Distribution Width 13.8 % (11.8-14.3); White Blood Cell 4.5 10^3/uL (4.4-10.8)
[2024-08-30 06:23] LABS: Basophils % (manual) 0 (0.0-2.0); Blast Cells 0; Eosinophils % (manual) 0 (0-7); Metamyelocytes % 0; Myelocytes % 0; Promyelocytes % 0; Reactive Lymphocytes 0
[2024-08-30 06:41] LABS: Albumin 3.7 g/dL (3.2-4.8); Alkaline Phosphatase 104 U/L (46-116); Anion Gap 6 (5-15); Aspartate Aminotransferase 38 U/L (13-40); Carbon Dioxide 24 mmol/L (20-31); Glucose 80 mg/dL (74-106); Potassium 3.6 mmol/L (3.5-5.1); Sodium 139 mmol/L (136-145)
[2024-08-30 06:42] LABS: Bilirubin, Total 0.4 mg/dL (0.2-1.0); Total Protein 6.1 g/dL (5.7-8.2)
[2024-08-30 06:50] LABS: Alanine Aminotransferase 62 U/L (7-40); BUN/Creatinine Ratio 11.4 (10.0-20.0); Blood Urea Nitrogen < 5 mg/dL (9-23); Calcium 8.6 mg/dL (8.7-10.4); Chloride 109 mmol/L (98-107)
[2024-08-30 08:46] LABS: Band Neutrophils % (manual) 3; Lymphocytes % (manual) 37 (10.0-50.0); Monocytes % (manual) 5 (0-12); Platelet Estimate Decreased
[2024-08-30] MEDS: MAGNESIUM SULFATE 1GM/100ML 100 ML IV ONE (10:06)
--- NOTE | 2024-08-30 12:36 | DVHHP2 ---
OB CC & HPI Date Date of Admission: Aug 30, 2024 Patient Identification: : 2 Para: 1 EGA: 25 Chief Complaints: Reason for admission: other (Nausea emises heart palpatations, SAWANT anxiety) Admission Nurse Assessment Rev: Yes History of Present Complaints All symptom's started Sunday seen in ER and DC d home ... She returned to ER 08/29 with worsening symptom's Past Medical History Cardiac: No pertinent Hx Pulmonary: No pertinent Hx Central Nervous System: No pertinent Hx GI: No pertinent Hx Hemotology/Oncology: No pertinent Hx Hepatobiliary: No pertinent Hx Psychiatric: No pertinent Hx Musculoskeletal: No pertinent Hx Rheumotologic: No pertinent Hx Infectious Disease: No peritnent Hx ENT: No pertinent Hx Renal/: No pertinent Hx Endocrine: No pertinent Hx Dermatology: No pertinent Hx Past Surgical History: No pertinent Hx OB History OB History Care: Good Care Ultrasounds: Normal mid trimester US Allergies: Coded Allergies: NO KNOWN ALLERGIES (Unverified , 06/23/23) Current Medications Current Medications Medications (Trade) Dose Ordered Sig/David Route PRN Reason Start Time Stop Time Status Last Admin Sodium Chloride (Saline Lock Ns) 10 ml Q8HR IV 08/30/24 06:00 08/30/24 05:38 Sodium Chloride 1,000 ml @ 100 mls/hr Q10H IV 08/29/24 23:00 08/30/24 02:05 Ondansetron HCl (Zofran) 4 mg Q4HP PRN IV NAUSEA / VOMITING 08/29/24 23:00 Acetaminophen (Tylenol Tablet) 650 mg Q6HP PRN PO PAIN SCALE 1-3 OR TEMP>100.4 08/29/24 23:00 08/30/24 06:35 Nitroglycerin (Ntrostat Sublingual) 0.4 mg Q5MINP PRN SL FOR CHEST PAIN 08/29/24 23:00 Morphine Sulfate 2 mg Q30M PRN IV FOR CHEST PAIN 08/29/24 23:00 Ceftriaxone Sodium 50 ml @ 100 mls/hr DAILY@2100 IV 08/30/24 21:00 Review of Systems Constitutional: No symptom reported Ears, Nose, & Throat: No symptom reported Eyes: No symptom reported Pulmonary/Respiratory: No symptom reported Cardiovascular: No symptom reported Gastrointestinal: No symptom reported Genitourinary: No symptom reported Musculoskeletal: No symptom reported Skin: No symptom reported Psychiatric: No symptom reported Endocrine: No symptom reported Hemotologic/Lymphatic: No symptom reported OB Admission Exam Physical Exam Vitals: Vital Signs Date Time Temp Pulse Resp B/P (MAP) Pulse Ox O2 Delivery O2 Flow Rate FiO2 08/30/24 09:10 129 Room Air* 0 21 08/30/24 09:03 98.3 18 108/59 (75) 99 98.3 HEENT: TMs Normal, [place] Normal, Nasal Mucosa Normal, Eyes non-injected, Oropharynx Normal, PERRLA, Moist Membranes, EOMI Heart: Rhythm Normal (tachy) Abdomen: Gravid Extremities: Normal Reflexes: Normal Cervical Dilatation: other (deferred) OB Plan Plan Admitting Diagnosis: with intractable nausea and vomiting; US on arrival ; sinus tach Plan: Other (continue hydration ; close obervation, Ob US , Gall bladder US.... ) Other Plan: OB ultrasound , Gall Bladder US CAMRYN CHEEK DO Aug 30, 2024 12:36
--- NOTE | 2024-08-30 13:54 | DVH ---
EXAM: US GALLBLADDER CLINICAL HISTORY: pelvic pain nausea emesis TECHNIQUE: Grayscale and limited color flow doppler ultrasound of the right upper quadrant is perfor med. COMPARISON: None Findings: Liver measures 15.2 cm in length with normal echotexture and contour. No evidence of focal hepatic le sions or intra- or extrahepatic ductal dilatation. Common bile duct not visualized. Normal hepatopeda l flow noted within the portal vein. No perihepatic free fluid is noted. Gallbladder appears within normal limits with gallbladder wall thickness measuring 0.3 cm. No evidenc e of shadowing calculi, biliary sludge or pericholecystic fluid. Negative sonographic Valenzuela's sign. Pancreas not well-visualized due to overlying bowel gas. Right kidney measures 11.5 cm with normal contours, echotexture and cortical thickness. Moderate hydr onephrosis. No evidence of calculi, cystic or solid renal lesions. Left kidney is within normal limits. Partially visualized inferior vena cava unremarkable. Impression: 1. No evidence of acute right upper quadrant abnormalities. 2. Moderate right hydronephrosis.
--- NOTE | 2024-08-30 13:56 | DVH ---
LIMITED OB ULTRASOUND > 14 WKS: HISTORY: severe hyperemesis evaluation TECHNIQUE: Multiple real-time grayscale images of the gravid uterus with duplex Doppler color flow an d M-mode spectral analysis. TRANSDUCER: Transabdominal COMPARISON: US OB ULTRASOUND COMP LESS 14WKS on DOS: 04/04/24 FINDINGS: IUP single live fetus at 25 weeks 1 day gestational age based on composite averages of the BPD, head circumference, abdominal circumference and femur length Estimated weight 765 grams. heart rate 160 beats per minute. SIERRA : Maximum vertical pocket is 5.9 cm. Cervix 3.3 cm in length. Breech presentation. Posterior placenta without previa or abruption. IMPRESSION: 1. IUP single live fetus at 25 weeks 1 day AUA corresponding to an SOY of 12/12/24.
--- NOTE | 2024-08-30 14:32 | DVHPNRES ---
Progress Note Date Seen: Aug 30, 2024 Resident Creating Document: KYM ROCK MELLISSA Has the PT tested + for MRSA If YES, has PT been informed?: No Medical Necessity Reason Pt with a Central, PICC or Fol: No Subjective Review of Systems This is a 19-year-old at 25 weeks of who presented to the ED with a chief complaint of intractable nausea and vomiting since this morning. The patient states that she has had a few episodes of vomiting since this morning and is also complaining of headache and palpitations for the same duration. The patient denies any history of preeclampsia/eclampsia during her previous or any elevated blood pressure during this . She is regularly following up with her office rn, Dr. Arzate, and her last follow-up was this morning. The patient denies abdominal pain, any vaginal discharge, decreased movements, chest pain, dizziness, diaphoresis, dysuria, changes in bowel and bladder habits, sick contacts, fever, chills, or any recent travel. PMHx: Not significant PSHx: Nonsignificant Family history: Noncontributory Social history: Denies smoking, denies drinking and any other drug use Home medication: Tylenol as needed for the pain Allergic history: Unremarkable Today, patient seen and examined at the bedside. Patient is complaining of mild headache otherwise nausea and vomiting has improved. Patient reports: No new complaints, Feels better Changes from previous H/P or p: Changes Objective vital signs Vital Sign Date Time Temp Pulse Resp B/P (MAP) Pulse Ox O2 Delivery O2 Flow Rate FiO2 08/30/24 13:00 99.4 127 16 106/60 (75) 99 99.4 08/30/24 09:10 Room Air* 0 21 Total Intake and Output 08/29/24 08/29/24 08/30/24 15:00 23:00 07:00 Intake Total 1050 ml Balance 1050 ml medications Current Medications Medications Dose Ordered Sig/David Route Start Time Stop Time Status Last Admin Dose Admin Sodium Chloride 10 ml Q8HR IV 08/30/24 06:00 08/30/24 05:38 10 ML Sodium Chloride 1,000 ml @ 100 mls/hr Q10H IV 08/29/24 23:00 08/30/24 02:05 100 MLS/HR Ondansetron HCl 4 mg Q4HP PRN IV 08/29/24 23:00 Acetaminophen 650 mg Q6HP PRN PO 08/29/24 23:00 08/30/24 06:35 650 MG Nitroglycerin 0.4 mg Q5MINP PRN SL 08/29/24 23:00 Morphine Sulfate 2 mg Q30M PRN IV 08/29/24 23:00 Ceftriaxone Sodium 50 ml @ 100 mls/hr DAILY@2100 IV 08/30/24 21:00 Examination General Appearance: Alert, Oriented X3, Cooperative, No acute distress HEENT: Atraumatic, PERRLA, EOMI, Mucous membrane moist/pink Respiratory: Clear to auscultation, Normal air movement Cardiovascular: Regular rate, Normal S1, Normal S2, No murmurs, no chest wall tenderness Abdominal: Normal bowel sounds, Soft, No tenderness, No hepatospenomegaly, No masses Extremities: No clubbing, No cyanosis, No edema, Normal pulses, No tenderness/swelling Skin: No rashes, No breakdown, No significant lesion Neuro: Normal gait, Normal speech, Strength at 5/5 X4 ext, Normal tone, Sensation intact, Cranial nerves 3-12 NL, Reflexes 2+ Psych/Mental Status: Mental status NL, Mood NL laboratory and microbiology Laboratory Tests 08/30/24 05:50 Test 08/30/24 05:50 Range/Units Serum Glucose 80 74-106 mg/dL Labs and/or images reviewed: Labs reviewed by me, Image(s) reviewed by me Problem List/Assessment/Plan Problem List/Assessment/Plan Intractable nausea and vomiting in Possible Hyperemesis gravidarum Patient has intractable nausea, vomiting, headache and tachycardia IV normal saline Ejection ondansetron Pyridoxine Patient was counseled for dietary changes to avoid the triggers Consulted OBGYN Sinus tachycardia likely due to dehydration IV normal saline Asymptomatic bacteriuria Due to , injection ceftriaxone given Transaminitis, to rule out HELLP syndrome Order urine protein Monitoring BP and CMP Hypomagnesemia, Supplemented Hyperkalemia, supplemented Rhinitis, likely viral COVID-19 and influenza are negative Check RSV Normal saline nasal spray DIET: Regular DVT PROPHYLAXIS: Not indicated, the patient is ambulatory GI PROPHYLAXIS:: Protonix BOWEL REGIMEN: No need for laxative CODE STATUS: More than 20 minutes, full code DISPOSITION: Med surge Patient's status discussed with patient and the board on the bedside Case discussed with Dr. Prabhakar Plan discussed with: Patient, Spouse, Other (RN) Date of Service: Aug 30, 2024 Billing Provider: KUN PRABHAKAR MD Common Visit Codes: [id number] INP/OBS CARE(HIGH) KYM ROCK RESDIYENNIFER Aug 30, 2024 14:32 KUN PRABHAKAR MD Aug 30, 2024 21:54
[2024-08-30] MEDS: PYRIDOXINE HCL 50 MG TAB PO ONE (16:07)
[2024-08-30] MEDS: SALINE 0.65 % NASAL SPRAY 45ML BOTTLE EACHNOSTRI SCH (17:37)
[2024-08-30] MEDS: cefTRIAXone 1GM/50ML D5W 50 ML IV SCH (21:46)
[2024-08-31 01:00] VITALS: BP 108/58; PULSE 96; RESP 18; TEMP 98.5
[2024-08-31 05:00] VITALS: BP 111/66; PULSE 129; RESP 18; TEMP 99.6; O2SAT 98
[2024-08-31 05:44] LABS: Basophils # (auto) 0 10 ^3/uL (0-0.2); Basophils % (auto) 0.2 % (0.0-2.0); Eosinophils # (auto) 0 10 ^3/uL (0-0.8); Eosinophils % (auto) 0.2 % (0.0-7.0); Hematocrit 33.8 % (36.0-46.0); Hemoglobin 11.4 g/dL (12.2-16.2); Lymphocytes # (auto) 1.6 10 ^3/uL (0.4-5.4); Lymphocytes % (auto) 34.7 % (10.0-50.0); Mean Corpuscular Hemoglobin 28.4 pg (28.0-32.0); Mean Corpuscular Hgb Conc. 33.7 g/dL (32.0-36.0); Mean Corpuscular Volume 84.3 fL (80.0-100.0); Monocytes # (auto) 0.5 10 ^3/uL (0-1.3); Monocytes % (auto) 9.8 % (0.0-12.0); Neutrophils # (auto) 2.6 10 ^3/uL (1.6-8.6); Neutrophils % (auto) 55.1 % (37.0-80.0); Nucleated Red Blood Cells % 0.2 %; Platelet Count (auto) 117 10^3/uL (140-450); Red Cell Distribution Width 13.7 % (11.8-14.3); White Blood Cell 4.6 10^3/uL (4.4-10.8)
[2024-08-31 05:48] VITALS: TEMP 98.7
[2024-08-31 06:09] LABS: Albumin 3.4 g/dL (3.2-4.8); Alkaline Phosphatase 104 U/L (46-116); Anion Gap 8 (5-15); Aspartate Aminotransferase 38 U/L (13-40); Carbon Dioxide 21 mmol/L (20-31); Glucose 82 mg/dL (74-106); Potassium 3.5 mmol/L (3.5-5.1); Sodium 138 mmol/L (136-145)
[2024-08-31 06:10] LABS: Bilirubin, Total 0.3 mg/dL (0.2-1.0); Total Protein 5.7 g/dL (5.7-8.2)
[2024-08-31 06:22] LABS: Alanine Aminotransferase 57 U/L (7-40); BUN/Creatinine Ratio 10.6 (10.0-20.0); Blood Urea Nitrogen < 5 mg/dL (9-23); Calcium 8.7 mg/dL (8.7-10.4); Chloride 109 mmol/L (98-107)
--- NOTE | 2024-08-31 09:24 | DVHPN2 ---
Chief Complaints Patient reports: No new complaints, Feels better Nursing reports: No new complaints, No abdominal pain, No chest pain, No dizziness, No cough Objective Vitals Vital Signs Date Time Temp Pulse Resp B/P (MAP) Pulse Ox O2 Delivery O2 Flow Rate FiO2 08/31/24 05:48 98.7 98.7 08/31/24 05:00 129 18 111/66 (81) 98 08/30/24 20:00 Room Air* 0 21 Medications Current Medications Medications (Trade) Dose Ordered Sig/Davdi Route PRN Reason Start Time Stop Time Status Last Admin Ceftriaxone Sodium 50 ml @ 100 mls/hr DAILY@2100 IV 08/30/24 21:00 08/30/24 21:46 Pyridoxine HCl (Vitamin B-6 Tablet) 50 mg DAILY PO 08/31/24 10:00 Sodium Chloride ([place] Nasal [place]) 1 spr QID EACHNOSTRI 08/30/24 18:00 08/30/24 17:37 General: Normal Lungs: Normal Cardiovascular: Other (sinus tach improved) Musculoskeletal: Normal Extremities: Normal Skin: Normal Neurological: Normal Studies Laboratory Tests 08/31/24 05:03 Test 08/31/24 05:03 Range/Units Serum Glucose 82 74-106 mg/dL Ass/Plan Assessment Hyperemesis improved, Anxiety improved, Sinus Tach improved, hydronephrosis expected no need for stent No HELLP No preeclampsia Obstetrically stable to DC with be weekly NST/ monitoring ; urgent Perinatologist referral as out patient CAMRYN CHEEK DO Aug 31, 2024 09:24
[2024-08-31] MEDS: PYRIDOXINE HCL 50 MG TAB PO SCH (10:00)
[2024-08-31] MEDS ORDERED: CEPH250C PO (10:12)
--- NOTE | 2024-08-31 10:14 | DVHDS2 ---
Discharge Summary Date of Admission Aug 29, 2024 at 22:55 Date of Discharge: Aug 31, 2024 Admitting Diagnosis Intractable nausea and vomiting in Possible Hyperemesis gravidarum Sinus tachycardia likely due to dehydration Asymptomatic bacteriuria Transaminitis, to rule out HELLP syndrome Hypomagnesemia Hyperkalemia Rhinitis, likely viral Labs/Diagnostic Data: Laboratory Results Test 08/31/24 05:03 08/30/24 05:50 08/29/24 17:27 08/29/24 15:00 White Blood Count 4.6 10^3/uL (4.4-10.8) Red Blood Count 4.00 10^6/uL (4.0-5.20) Hemoglobin 11.4 g/dL (12.2-16.2) Hematocrit 33.8 % (36.0-46.0) Mean Corpuscular Volume 84.3 fL (80.0-100.0) Mean Corpuscular Hemoglobin 28.4 pg (28.0-32.0) Mean Corpuscular Hemoglobin Concent 33.7 g/dL (32.0-36.0) Red Cell Distribution Width 13.7 % (11.8-14.3) Platelet Count 117 10^3/uL (140-450) Mean Platelet Volume 9.6 fL (6.9-10.8) Neutrophils (%) (Auto) 55.1 % (37.0-80.0) Lymphocytes (%) (Auto) 34.7 % (10.0-50.0) Monocytes (%) (Auto) 9.8 % (0.0-12.0) Eosinophils (%) (Auto) 0.2 % (0.0-7.0) Basophils (%) (Auto) 0.2 % (0.0-2.0) Neutrophils # (Auto) 2.6 10 ^3/uL (1.6-8.6) Lymphocytes # (Auto) 1.6 10 ^3/uL (0.4-5.4) Monocytes # (Auto) 0.5 10 ^3/uL (0-1.3) Eosinophils # (Auto) 0 10 ^3/uL (0-0.8) Basophils # (Auto) 0 10 ^3/uL (0-0.2) Nucleated Red Blood Cells 0.2 % Sodium Level 138 mmol/L (136-145) Potassium Level 3.5 mmol/L (3.5-5.1) Chloride Level 109 mmol/L (98-107) Carbon Dioxide Level 21 mmol/L (20-31) Anion Gap 8 (5-15) Blood Urea Nitrogen < 5 mg/dL (9-23) Creatinine 0.47 mg/dL (0.550-1.02) Glomerular Filtration Rate Calc 140 mL/min (>90) BUN/Creatinine Ratio 10.6 (10.0-20.0) Serum Glucose 82 mg/dL (74-106) Calcium Level 8.7 mg/dL (8.7-10.4) Total Bilirubin 0.3 mg/dL (0.2-1.0) Aspartate Amino Transferase (AST) 38 U/L (13-40) Alanine Aminotransferase (ALT) 57 U/L (7-40) Alkaline Phosphatase 104 U/L (46-116) Total Protein 5.7 g/dL (5.7-8.2) Albumin 3.4 g/dL (3.2-4.8) Differential Total Cells Counted 100.0 (100) Neutrophils % (Manual) 55 (37.0-80.0) Band Neutrophils % (Manual) 3 Lymphocytes % (Manual) 37 (10.0-50.0) Monocytes % (Manual) 5 (0-12) Eosinophils % (Manual) 0 (0-7) Basophils % (Manual) 0 (0.0-2.0) Metamyelocytes % (manual) 0 Myelocytes % (Manual) 0 Promyelocytes % (Manual) 0 Blast Cells % (Manual) 0 Reactive Lymphocytes 0 Platelet Estimate Decreased Troponin I High Sensitivity < 3 ng/L (</=34) Lactic Acid Level 1.0 mmol/L (0.4-2.0) Magnesium Level 1.9 mg/dL (1.6-2.6) Lipase 31 U/L (12-53) Thyroid Stimulating Hormone (TSH) 2.31 uIU/mL (0.55-4.78) Test 08/29/24 14:36 Urine Color Light-yellow (Yellow) Urine Clarity Clear (Clear) Urine pH 6.0 (5.0-9.0) Urine Specific [place] 1.014 (1.001-1.035) Urine Protein Negative (Negative) Urine Ketones Negative (Negative) Urine Blood Negative /uL (Negative) Urine Nitrite Negative (Negative) Urine Bilirubin Negative (Negative) Urine Urobilinogen Normal mg/dL (Negative) Urine Leukocyte Esterase 1+ /uL (Negative) Urine RBC 1 /hpf (0 - 4) Urine WBC 1 /hpf (0 - 5) Urine Squamous Epithelial Cells Few /hpf (<5) Urine Bacteria Few /hpf (None Seen) Urine Glucose Normal mg/dL (Normal) Urine Opiates Screen Neg (NEGATIVE) Urine Fentanyl Screen Neg (NEGATIVE) Urine Barbiturates Screen Neg (NEGATIVE) Urine Phencyclidine Screen Neg (NEGATIVE) Urine Amphetamines Screen Neg (NEGATIVE) Urine Benzodiazepines Screen Neg (NEGATIVE) Urine Cocaine Screen Neg (NEGATIVE) Urine Cannabinoids Screen Neg (NEGATIVE) Influenza Type A Antigen Negative (Negative) Influenza Type B Antigen Negative (Negative) SARS-CoV-2 Antigen (Rapid) Negative (NEGATIVE) Group A Streptococcus Rapid Negative Other Laboratory Tests 08/31/24 05:03 Brief Hx & Hospital Course: This is a 19 years old two para one come to emergency department with chief complaint of intractable nausea and vomiting in the morning prior to this admission. The patient is 20 weeks . Patient also had heart palpitation. The patient did not have any history of preeclampsia or eclampsia during previous . The patient did not have any elevation of blood pressure during this . The patient follow up with her OBGYN doctor Huey. The patient was admitted. The patient had urinary tract infection elevation of liver function tests. The patient was put on IV antibiotic with Rocephin 1 g IV q.day. Nausea and vomiting improved after IV fluid. I am going to discharge her home today. Advised her to follow up with her OBGYN per schedule. Follow up with her primary care physician 1-2 weeks. Activity as tolerated. Diet per home diet. Patient needs to repeat liver function tests within two to four weeks. Physical exam: HEENT: Normocephalic atraumatic pupils equal react to light and accommodation. Extraocular muscles intact, conjunctiva pink, oropharynx moist, no thrush, no exudate. Lymphatic: No lymphadenopathy Cardiovascular exam: S1, S2 was heard. No murmurs, rubs, gallops Lung: Clear on auscultation bilaterally, no wheeze, rale, rhonchi. GI: Abdominal soft, nondistended, nontenderness, positive bowel sounds. Extremity: No crepitus, cyanosis, edema. Pedal pulses present bilateral. Full range of motion. Skin: Normal turgor, no rash. Psych: Alert, oriented x3. Neurology: No focal deficits, cranial nerve II to XII grossly intact. This medical document was created using an electronic medical record system with [employer] direct computerized dictation system. Although this document has been carefully reviewed, there may still be some phonetic and typographical errors. These areas are purely typographical due to imperfections of the software programs, and do not reflect any compromise in the patient's medical care. Condition at Discharge: Stable Final Diagnosis/Problems List Intractable nausea and vomiting in Possible Hyperemesis gravidarum Sinus tachycardia likely due to dehydration Asymptomatic bacteriuria Transaminitis, to rule out HELLP syndrome Hypomagnesemia Hyperkalemia Rhinitis, likely viral Discharge Disposition: Home Discharge Instruct/Medications Diet: Regular Activity: No Restrictions, As Tolerated Follow Up/Referral: PCP 1-2 [facility] [facility] per schedule Medications: See med list Discharge Statement: "Patient was advised to return to the ER or call 911 if any headaches, dizziness, shortness of breath, chest pain, abdominal pain, bleeding, fevers, or worsening of medical condition. Patient was counseled about treatment plan, medications, possible side effects, patientverbalized understanding. All questions were answered to the best of my ability. This discharge took greater then 30 minutes in planning, reviewing documentation, counseling the patient, and discussing with other team members." ASSESSMENT ASSESSMENT Assessment UTI Date of Service: Aug 31, 2024 Billing Provider: KUN PRABHAKAR MD Common Visit Codes: 70559-DGH/OBS DISCH DAY >30min KUN PRABHAKAR MD Aug 31, 2024 10:14
[2024-08-31 10:45] VITALS: BP 104/62; PULSE 132; RESP 14; TEMP 98.4; O2SAT 100
--- NOTE | 2024-09-01 15:17 | ECG ---
[facility] Test Date: 2024-08-29 Test Time: 14:12:45 Pat Name: KERRY HEATH Department: ER Room: [facility] A Gender: F Production Control Scheduler: NEMO : 2005 Requested By: DARLENE JOYNER Order Number: [id number] Reading MD: Zain Ventura Measurements Intervals [place] Rate: 130 P: 55 [place]: 126 QRS: 85 QRSD: 81 T: 31 QT: 309 QTc: 455 Interpretive Statements Sinus tachycardia Electronically Signed On 09-02-2024 13:02:13 PST by Zain Ventura Please click the below link to view image of tracing.
== END 2024-08-31 13:55 | disposition home or self-care (01) | DRG 566 ==
LOC: ER 14:05 → OVERFLOW 22:55 → WEST WING 08-30 09:06
PROVIDERS: ATTEND Emergency Medicine
DX: O21.0 Mild hyperemesis gravidarum (principal); N13.6 Pyonephrosis; O23.02 Infections of kidney in pregnancy, second trimester; E86.0 Dehydration; O99.891 Other specified diseases and conditions complicating pregnancy; Z20.822 Contact with and (suspected) exposure to COVID-19; Z3A.25 25 weeks gestation of pregnancy; R00.0 Tachycardia, unspecified; J31.0 Chronic rhinitis; O99.342 Other mental disorders complicating pregnancy, second trimester; F41.9 Anxiety disorder, unspecified; O99.282 Endocrine, nutritional and metabolic diseases complicating pregnancy, second trimester; O99.512 Diseases of the respiratory system complicating pregnancy, second trimester; E83.42 Hypomagnesemia; E87.5 Hyperkalemia; Z83.2 Family history of diseases of the blood and blood-forming organs and certain disorders involving the immune mechanism; Z84.81 Family history of carrier of genetic disease
CPT/HCPCS: 36415; 76705; 76805; 80053; 80307; 81001; 83605; 83690; 83735; 84443; 84484; 85007; 85025; 85027; 87070; 87426; 87804; 87880; 93005; G0378; J2405